=== PATIENT | male | born 2000 | race African-American/Black ===

== ENCOUNTER 2021-07-06 13:41 | Inpatient (IN) | payer MEDICAID, OTHER ==
--- NOTE | 2021-07-06 14:44 | ED ---
Psych HPI - General Chief Complaint: Psychiatric Symptoms Stated Complaint: Mental Health Time Seen by Provider: 07/06/21 14:15 Source: patient, family, RN notes reviewed Mode of arrival: ambulatory - History of Present Illness Initial Comments: 21-year-old male with a history of depression last several years who apparently is been having increased issues with depression he's had suicidal thoughts and ideation also desire to hurt people. He is brought in today because his sister brought him in for evaluation. He apparently has been using drugs which haven't been helping the situation. He most recently use marijuana. He denies any alcohol use. No other complaints no other modifying factors MD Complaint: suicidal ideation, feels depressed, other - Related Data Home Medications Medication Instructions Recorded Confirmed No Known Home Medications 05/15/14 07/06/21 Allergies Allergy/AdvReac Type Severity Reaction Status Date / Time No Known Allergies Allergy Verified 07/06/21 14:29 Review of Systems ROS Statement: Those systems with pertinent positive or pertinent negative responses have been documented in the HPI. ROS Other: All systems not noted in ROS Statement are negative. Past Medical History Past Medical History: No Reported History History of Any Multi-Drug Resistant Organisms: None Reported Past Surgical History: No Surgical Hx Reported Past Psychological History: No Psychological Hx Reported Smoking Status: Current some day smoker Past Alcohol Use History: None Reported Past Drug Use History: Cocaine, Marijuana, Methamphetamine General Exam - General Exam Comments Initial Comments: This is a well-developed well-nourished awake alert oriented times 3 male Limitations: no limitations General appearance: alert, in no apparent distress Head exam: Present: atraumatic, normocephalic, normal inspection Eye exam: Present: normal appearance, PERRL, EOMI. Absent: scleral icterus, conjunctival injection, periorbital swelling ENT exam: Present: normal exam, mucous membranes moist Neck exam: Present: normal inspection. Absent: tenderness, meningismus, lymphadenopathy Respiratory exam: Present: normal lung sounds bilaterally. Absent: respiratory distress, wheezes, rales, rhonchi, stridor Cardiovascular Exam: Present: regular rate, normal rhythm, normal heart sounds. Absent: systolic murmur, diastolic murmur, rubs, gallop, clicks GI/Abdominal exam: Present: soft, normal bowel sounds. Absent: distended, tenderness, guarding, rebound, rigid Extremities exam: Present: normal inspection, full ROM, normal capillary refill. Absent: tenderness, pedal edema, joint swelling, calf tenderness Back exam: Present: normal inspection, full ROM Neurological exam: Present: alert, oriented X3, CN II-XII intact Psychiatric exam: Present: depressed, flat affect, suicidal ideation Skin exam: Present: warm, dry, intact, normal color. Absent: rash Course Vital Signs 07/06/21 13:59 Temperature 98.5 F Pulse Rate 106 H Respiratory 20 Rate Blood Pressure 159/85 O2 Sat by Pulse 100 Oximetry Medical Decision Making - Medical Decision Making The patient was evaluated by the psychiatric service and will be admitted for inpatient evaluation and treatment - Lab Data Lab Results 07/06/21 Range/Units 14:22 Urine Opiates Screen Not Detected (NotDetected) Ur Oxycodone Screen Not Detected (NotDetected) Urine Methadone Screen Not Detected (NotDetected) Ur Propoxyphene Screen Not Detected (NotDetected) Ur Barbiturates Screen Not Detected (NotDetected) U Tricyclic Antidepress Not Detected (NotDetected) Ur Phencyclidine Scrn Not Detected (NotDetected) Ur Amphetamines Screen Not Detected (NotDetected) U Methamphetamines Scrn Not Detected (NotDetected) U Benzodiazepines Scrn Not Detected (NotDetected) Urine Cocaine Screen Not Detected (NotDetected) U Marijuana (THC) Screen Detected H (NotDetected) Disposition Clinical Impression: Depression, Suicidal ideation Disposition: TRANSFER TO PSYCH HOSP/UNIT Condition: Stable Referrals: Augustin Murphy MD [Primary Care Provider] - 1-2 days
[2021-07-06 15:00] LABS: Amphetamine Screen,Urine Not Detected (NotDetected); Barbiturate Screen,Urine Not Detected (NotDetected); Benzodiazepines Screen,Urine Not Detected (NotDetected); Cocaine Screen,Urine Not Detected (NotDetected); Methadone Screen, Urine Not Detected (NotDetected); Opiate Screen,Urine Not Detected (NotDetected); Oxycodone Screen, Urine Not Detected (NotDetected); Phencyclidine Screen,Urine Not Detected (NotDetected); Tricyclic Antidepressant,Urine Not Detected (NotDetected); Urn Cannabinoid Scrn Detected (NotDetected)
[2021-07-06] MEDS ORDERED: HALOPERIDOL LACTATE 5 MG/ML 1 ML VIAL IM PRN (18:46)
[2021-07-06] MEDS ORDERED: MAGNESIUM HYDROXIDE 2,400 MG/10 ML CUP PO PRN (18:46)
[2021-07-06] MEDS ORDERED: ACETAMINOPHEN TAB 325 MG TAB PO PRN (18:46)
[2021-07-06] MEDS ORDERED: MAG HYDROX/AL HYDROX/SIMETH 30 ML CUP PO PRN (18:46)
[2021-07-06] MEDS ORDERED: LORazepam 1 MG TAB PO PRN (18:46)
[2021-07-06] MEDS ORDERED: LORazepam 2 MG/ML INJ IM PRN (18:53)
[2021-07-06] MEDS ORDERED: haloperidoL 5 MG TAB PO PRN (18:54)
[2021-07-06] MEDS ORDERED: traZODone HCL 50 MG TAB PO PRN (18:55)
[2021-07-06 21:30] LABS: Appearance,Urine Cloudy (Clear); Bacteria,Urine Moderate /hpf; Bilirubin,Urine Negative (Negative); Blood,Urine Negative (Negative); Color,Urine Yellow; Glucose,Urine (UA) Negative (Negative); Ketones,Urine Negative (Negative); Leukocyte Esterase,Urine Negative (Negative); Mucus,Urine Rare /hpf; Nitrite,Urine Negative (Negative); Protein,Urine Negative (Negative); RBC,Urine 8 /hpf (0-5); Specific Gravity,Urine 1.026 (1.001-1.035); Urobilinogen,Urine <2.0 mg/dL (<2.0); WBC,Urine 1 /hpf (0-5)
[2021-07-06] MEDS: NICOTINE 14MG/24HR PATCH TRANSDERM SCH (22:06)
[2021-07-07] MEDS: NICOTINE 14MG/24HR PATCH TRANSDERM SCH (10:03)
[2021-07-07] MEDS ORDERED: ARIPiprazole 5 MG TAB PO STA (11:07)
[2021-07-07] MEDS ORDERED: FLUoxetine HCL 10 MG CAP PO STA (11:08)
--- NOTE | 2021-07-07 11:56 | P.HP ---
Psychiatric H&P - . H&P Date: 07/07/21 History & Physical: Allergies Allergy/AdvReac Type Severity Reaction Status Date / Time No Known Allergies Allergy Verified 07/06/21 14:29 Vital Signs Temp 98.4 F 07/07/21 06:42 Pulse 72 07/07/21 06:42 Resp 14 07/07/21 06:42 BP 117/72 07/07/21 06:42 Pulse Ox 97 07/07/21 06:42 Intake & Output 07/06/21 07/07/21 07/07/21 18:59 06:59 18:59 Weight 83.915 kg 65.317 kg Laboratory Last Values Urine Color Yellow 07/06/21 14: Urine Appearance Cloudy (Clear) 07/06/21 14:22 Urine pH 7.0 (5.0-8.0) 07/06/21 14:22 Ur Specific E[place]ice 1.026 (1.001-1.035) 07/06/21 14:22 Urine Protein Negative (Negative) 07/06/21 14:22 Urine Glucose (UA) Negative (Negative) 07/06/21 14:22 Urine Ketones Negative (Negative) 07/06/21 14:22 Urine Blood Negative (Negative) 07/06/21 14:22 Urine Nitrite Negative (Negative) 07/06/21 14:22 Urine Bilirubin Negative (Negative) 07/06/21 14:22 Urine Urobilinogen <2.0 mg/dL (<2.0) 07/06/21 14:22 Ur Leukocyte Esterase Negative (Negative) 07/06/21 14:22 Urine RBC 8 /hpf (0-5) H 07/06/21 14:22 Urine WBC 1 /hpf (0-5) 07/06/21 14:22 Urine Bacteria Moderate /hpf (None) H 07/06/21 14:22 Urine Mucus Rare /hpf (None) H 07/06/21 14:22 Urine Opiates Screen Not Detected (NotDetected) 07/06/21 14:22 Ur Oxycodone Screen Not Detected (NotDetected) 07/06/21 14:22 Urine Methadone Screen Not Detected (NotDetected) 07/06/21 14:22 Ur Propoxyphene Screen Not Detected (NotDetected) 07/06/21 14:22 Ur Barbiturates Screen Not Detected (NotDetected) 07/06/21 14:22 U Tricyclic Antidepress Not Detected (NotDetected) 07/06/21 14:22 Ur Phencyclidine Scrn Not Detected (NotDetected) 07/06/21 14:22 Ur Amphetamines Screen Not Detected (NotDetected) 07/06/21 14:22 U Methamphetamines Scrn Not Detected (NotDetected) 07/06/21 14:22 U Benzodiazepines Scrn Not Detected (NotDetected) 07/06/21 14:22 Urine Cocaine Screen Not Detected (NotDetected) 07/06/21 14:22 U Marijuana (THC) Screen Detected (NotDetected) H 07/06/21 14:22 Coronavirus (PCR) Not Detected (Not Detectd) 07/06/21 16:27 07/07/21 11:56 IDENTIFYING DATA: Patient is a single, unemployed, 21-year-old -Q[place] male, brought in to the emergency department by his sister for suicidal ideation, homicidal ideation, and delusional thinking. HPI: Patient presented to the hospital on 07/06/2021, brought in by his sister for recent suicidal, homicidal, and paranoid thoughts. As per EPS reports, the patient reportedly had suicidal thoughts approximately weeks ago with a plan to jump in the river. Furthermore, the patient had an idea to try and obtain a firearm in order to kill his cousin out of concern that they were out to get him. When evaluated on the psychiatric unit, the patient does acknowledge that he was brought in by his sister for the above-mentioned statements. He reports that he recently has been expressing suicidal ideation and 3 weeks ago he had no idea to jump into the river. He reports that the term "baptize" himself came from his mother as his mother is Seventh-day Zoroastrian. In regards to depressive symptoms, the patient does report that he has been feeling increasingly isolative, with decreased appetite, anhedonia, hopelessness, helplessness, and does admit to suicidal ideation. Aside from his idea to jump into the river, the patient denies any other prior attempts at suicide. The patient does not endorse any significant symptoms of bipolar disorder at this time. He denies any periods of excessive energy, impulsivity, and gastric, or mood lability. He denies any increased goal-directed activity. In regards to psychotic symptoms, the patient denies any auditory or visual hallucinations. He does admit to increased paranoia and fearfulness stating that he does feel like people are always trying to act against him or hurt him. He reports that this is the reason why he wanted to obtain a firearm. He is otherwise not endorsing any of the delusional thought content. He denies any thought insertion, thought deletion, thought projection, ideas of reference, or any other delusions at this time. The patient does not endorse any significant history of abuse. He denies any physical, emotional, or sexual abuse history. In regards to substance use, the patient reports that he smokes 1 g of marijuana every 2-3 days. He does report that he had an issue with methamphetamines 2 years ago and he last used cocaine 1 year ago. He reports he smokes 1-2 cigarettes per day. He denies any heavy alcohol use. PAST PSYCHIATRIC HISTORY: Patient states that he has never been treated for any mental illness in the past. Patient denies being on any psychiatric medications. Patient denies any previous psychiatric hospitalizations. Patient denies any psychiatric outpatient follow-up. Patient denies any history of suicide attempts in the past. PMH: Past Medical History: No Reported History History of Any Multi-Drug Resistant Organisms: None Reported Past Surgical History: No Surgical Hx Reported Past Psychological History: No Psychological Hx Reported Smoking Status: Current some day smoker Past Alcohol Use History: None Reported Past Drug Use History: Cocaine, Marijuana, Methamphetamine ALLERGIES: NO KNOWN DRUG ALLERGIES CHEMICAL DEPENDENCY HISTORY: as per HPI FAMILY PSYCHIATRIC/SUBSTANCE USE HISTORY: Patient reports that he has a half- brother who is schizophrenic. SOCIAL HISTORY: Patient was born and raised in [place] and then moved to [place]. He reports an 11th grade education. 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 He denies any service or lutheran affiliation. He currently does have legal problems and is on probation since July 03 for fleeing and eluding use of a controlled substance. MENTAL STATUS EXAM: General Appearance: Patient appears to be stated age is alert, directable, and attempts to cooperate. Patient appears to have good hygiene and grooming. Behavior: Patient is seated without any agitated behavior. Eye contact is appropriate. Speech: Patient's speech is fluent and nonpressured. Monotone and nonspontaneous. Mood/Affect: Patient reports their mood is depressed, affect is congruent and blunted. Suicidality/Homicidality: Patient denies having any homicidal ideation intent or plan. Denies any suicidal ideations intent or plan Perceptions: Patient denies any visual hallucinations and denies any auditory hallucinations Though content/process: Paranoia is endorsed however no other delusional thought content is reported. Memory and concentration: AOX3, grossly intact for the purposes of this session. Can spell "WORLD" backwards Judgment and insight: Fair STRENGTHS/WEAKNESSES: Strengths is that the patient history and dinorah and appears to have a supportive family. Weakness is that the patient engages in frequent marijuana use. INTELLECT: average IMPRESSIONS: Major depressive disorder Psychosis, unspecified - suspect secondary to cannabis use Cannabis use disorder Tobacco use PLAN: -Patient is admitted under voluntary status to [facility] for stabilization of psychiatric symptoms and safety. Patient signed adult voluntary form and me dication consent and is placed in patient's chart. -Medications : Will start patient on Prozac 10 mg daily for depression/anxiety. We'll increase 20 mg tomorrow. Abilify 5 mg by mouth daily for management of mood augmentation and psychosis. We'll gradually titrate to 10 mg over the weekend. -Ativan and Haldol PRN for agitation/aggression -Patient was counselled on substance abuse and desired to cut back on use -Patient was informed of the risks, benefits and side effects of the medication and patient verbally consented to taking the medications. Patient signed med consent form and was placed in chart. -Internal Medicine consult to perform medical evaluation and physical. -NRT - nicotine patch - on board for discharge planning. Encourage patient to participate in groups to work on coping skills. 07/07/21 11:56
[2021-07-07 16:07] LABS: Basophils # (A) 0.1 k/uL (0-0.2); Basophils % (A) 1 %; Eosinophils # (A) 0.1 k/uL (0-0.7); Eosinophils % (A) 2 %; HCT 49.9 % (39.0-53.0); HGB 16.5 gm/dL (13.0-17.5); Lymphocytes # (A) 1.9 k/uL (1.0-4.8); Lymphocytes % (A) 38 %; MCH 28.2 pg (25.0-35.0); MCHC 33.1 g/dL (31.0-37.0); MCV 85.3 fL (80.0-100.0); Mean Platelet Volume 7.5; Monocytes # (A) 0.2 k/uL (0-1.0); Monocytes % (A) 5 %; Neutrophils # (A) 2.6 k/uL (1.3-7.7); Neutrophils % (A) 53 %; Platelet Count 264 k/uL (150-450); RBC 5.86 m/uL (4.30-5.90); RDW 12.3 % (11.5-15.5); WBC 4.9 k/uL (3.8-10.6)
[2021-07-07 16:14] LABS: ALT 10 U/L (4-49); AST 20 U/L (17-59); African American GFR (CKD) >90 (>60 ml/min/1.73 sqM); Alkaline Phosphatase 53 U/L (38-126); Anion Gap 12 mmol/L; Blood Urea Nitrogen 13 mg/dL (9-20); Calcium 9.9 mg/dL (8.4-10.2); Carbon Dioxide 26 mmol/L (22-30); Chloride 101 mmol/L (98-107); Glucose 96 mg/dL (74-99); Non-African American GFR(CKD) >90 (>60 ml/min/1.73 sqM); Potassium 4.2 mmol/L (3.5-5.1); Sodium 139 mmol/L (137-145); Total Bilirubin 1.4 mg/dL (0.2-1.3); Total Protein 7.8 g/dL (6.3-8.2)
--- NOTE | 2021-07-07 22:32 | CONS ---
CONSULTATION CHIEF COMPLAINT: Major depression and delusional disorder. HISTORY OF PRESENT ILLNESS: This is the first known admission for this 21-year-old -Tajik male. He has been healthy otherwise. Apparently his sister brought him to the hospital. He is not giving a clear reason as to why. He has been healthy. REVIEW OF SYSTEMS: He denies any headaches, neurologic problems, problems with vision, chest pain, shortness of breath, hypertension, heart disease, abdominal pain, nausea, vomiting, , melena, hematochezia, urinary complaints, diabetes, etc. Past medical history, family history, and personal and social histories are otherwise unremarkable and noncontributory. He takes no medications and he is NOT ALLERGIC TO ANY MEDICATIONS. He denies ever having any surgery. He does not smoke and he denies use of drugs. PHYSICAL EXAMINATION: Blood pressure is 123/69 with a pulse of 80, respirations of 12, and he is afebrile. In general he appeared to be slender and in no acute distress. Skin color is normal and skin is warm and dry. Head, ears, eyes, nose, mouth and throat were normal. Neck veins were not distended. Thyroid is not enlarged. Chest is clear. Cardiac exam is normal. The abdomen is flat, soft and nontender. Extremities and normal. Neurologically he is intact. He is admitted to the hospital with diagnoses: 1. Depression. 2. ? schizophrenia. PLAN: No medical recommendations at this time. MMODL / IJN: [id number] /
[2021-07-08] MEDS ORDERED: ARIPiprazole 5 MG TAB PO SCH (09:00)
[2021-07-08] MEDS: FLUoxetine HCL 20 MG CAP PO SCH (09:09)
[2021-07-08] MEDS: NICOTINE 14MG/24HR PATCH TRANSDERM SCH (09:09)
--- NOTE | 2021-07-08 17:18 | PN ---
PROGRESS NOTE DATE OF SERVICE: 07/08/2021. CHIEF COMPLAINT: The patient had depression with suicidal thinking, homicidal thinking and delusions. INTERVAL HISTORY: The patient has been doing fair. He had a quiet day yesterday, he was out on the unit. He will socialize some with others. He did not attend groups yesterday. He has been cooperative with care. He said he did not sleep so well last night and it is noted that he has trazodone ordered, but he did not ask for it. Today he has been up. He has not attended groups today. When I reviewed the documentation regarding his coming into the hospital. He seemed to disagree with quite a bit of a bit of the history. On the other hand, when he tried to explain things, it was hard to follow his train of thought. He was able to acknowledge that he has had some issues with depression. He was stating at one point that he did not have the impulse to jump into the river. He also stated that he had not made threats to harm others. He talked at length about his cousin owning weapons, though it was not so clear what the issues were with that. He said that he does not have much interaction with his cousins. He lives with his mother. He said the two of them are moving into a new house. He was not able to give much information as to how his sister got involved in getting him to the hospital. He reported no problems or issues with his psychotropic medications. MENTAL STATUS EXAM: The patient was restless. He gave fairly good eye contact. He responded to questions. Some of the time he would answer with fairly direct answers. At other times, his responses were disconnected from the question asked. His affect was somewhat intense. He smiled and had a friendly manner. His mood was somewhat dysphoric. It was difficult to say if he was distressed in any way. It was difficult to assess for thought disorder. He denied thoughts of harm. He was oriented and alert. ASSESSMENT: I will continue the current diagnosis and treatment plan. I will continue psychotropic medications the same including Abilify 10 mg a day and Prozac 20 mg a day. I will make his trazodone regular rather than p.r.n. as he was not aware of having a medication and does hope he could get some assistance with sleep. I briefly reviewed medication issues with the patient. It was not clear that he follow the conversation too well. We will focus on stabilization and discharge planning. CONI / ANKITAN: [id number] /
[2021-07-08] MEDS: traZODone HCL 50 MG TAB PO SCH (22:06)
[2021-07-09] MEDS: FLUoxetine HCL 20 MG CAP PO SCH (08:40)
[2021-07-09] MEDS: ARIPiprazole 10 MG TAB PO SCH (08:40)
[2021-07-09] MEDS: NICOTINE 14MG/24HR PATCH TRANSDERM SCH (08:40)
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
[2021-07-09] MEDS: traZODone HCL 50 MG TAB PO SCH (21:04)
[2021-07-10 08:29] VITALS: RESP 16
[2021-07-10] MEDS: NICOTINE 14MG/24HR PATCH TRANSDERM SCH (08:29)
[2021-07-10] MEDS: FLUoxetine HCL 20 MG CAP PO SCH (08:30)
[2021-07-10] MEDS: ARIPiprazole 10 MG TAB PO SCH (08:30)
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
[2021-07-10] MEDS: traZODone HCL 50 MG TAB PO SCH (20:44)
[2021-07-10] MEDS ORDERED: ARIPiprazole 10 MG TAB PO SCH (21:00)
[2021-07-11] MEDS: FLUoxetine HCL 10 MG CAP PO SCH (08:21)
--- NOTE | 2021-07-11 11:17 | P.PN ---
Progress Note - Text Progress Note Date: 07/11/21 Interval History: Patient was seen wandering the hallways and was directable and agreeable to speak with casualty underwriter in the office. This provider discussed with the patient the concerns of his family. The patient initially denied those concerns but as the interview continued, the patient did admit that he was violent and that he was yelling out to God because he was having "negative thoughts." When asked for his reasoning, the patient is unable to provide anything beyond a superficial answer. He reports to this provider, "everyone is always trying to get into my head." He repeats this multiple times and when asked for clarification, the patient is unable to provide any. He does endorse significant paranoia towards others. The patient does admit that he has violent outbursts. He reports that he responds with violence because others are violent towards him. He states that this is why he has physical altercations. He remained superficial and guarded in regards to expressing his physical altercations with others, in particular with his girlfriend. The patient has been adherent with his medications and is not endorsing any significant side effects at this time. He is not reporting any auditory or visual hallucinations. He denies any suicidal or homicidal ideation, intention, and/or plan. Mental Status Exam: General Appearance: Patient appears to be stated age is alert, directable, and cooperative. Behavior: Patient is calmly seated without any agitated behavior. Speech: Patient's speech is fluent and nonpressured. Monotone. Mood/Affect: Mood is improving mildly, affect is congruent and blunted. Suicidality/Homicidality: Patient denies having any suicidal or homicidal ideation intent or plan. Perceptions: Patient denies any visual hallucinations and denies any auditory hallucinations Though content/process: The patient appears to be somewhat disorganized and unable to respond with any clarity regarding his thought process. Paranoia is evident. Memory and concentration: AOX3, grossly intact for the purposes of this session Judgment and insight: Improving mildly Vital Signs Temp 97.3 F L 07/11/21 08:00 Pulse 82 07/11/21 08:00 Resp 16 07/11/21 08:00 BP 124/71 07/11/21 08:00 Pulse Ox 99 07/10/21 08:28 Assessment Schizophrenia Cannabis use disorder Rule out PTSD Plan: -Patient continues to meet criteria for inpatient psychiatric admission for symptom stabilization and safety. Patient has signed adult voluntary form and medication consent and was placed in patient's chart. -Medications: Increase Abilify to 20 mg for mood stabilization/psychosis Continue Prozac 30 mg by mouth daily for depression/anxiety/PTSD. -When necessary Ativan and Haldol for agitation/aggression. -SW on board for discharge planning. Encouraged the patient to participate in milieu.
[2021-07-11] MEDS: traZODone HCL 50 MG TAB PO SCH (20:37)
[2021-07-12] MEDS: FLUoxetine HCL 10 MG CAP PO SCH (08:32)
--- NOTE | 2021-07-12 11:54 | P.PN ---
Progress Note - Text Progress Note Date: 07/12/21 Interval History: Patient was seen wandering the hallways and was directable and agreeable to speak with advertising copywriter in the office. Patient is reporting any slurring slightly better today. He is currently not endorsing any suicidal or homicidal ideation, intention, and/or plan. He is not reporting any auditory or visual hallucinations. He does admit that it was all out of him to jump into the river to try and "baptized himself." He does admit to himself into this provider that he has been experiencing some negative and on thoughts lately. He reports that he does have issues with his anger, and particular related to his family. He is adherent with his medications and is not reporting any significant side effects. The patient has also been participating in more group activities and engaging with more staff and peers. Mental Status Exam: General Appearance: Patient appears to be stated age is alert, directable, and cooperative. Behavior: Patient is calmly seated without any agitated behavior. Speech: Patient's speech is fluent and nonpressured. Monotone. Mood/Affect: Mood is improving mildly, affect is congruent and constricted. Slightly increased range of affect today. Suicidality/Homicidality: Patient denies having any suicidal or homicidal ideation intent or plan. Perceptions: Patient denies any visual hallucinations and denies any auditory hallucinations Though content/process: The patient appears to be somewhat disorganized and unable to respond with any clarity regarding his thought process. Paranoia is evident. Memory and concentration: AOX3, grossly intact for the purposes of this session Judgment and insight: Improving mildly Vital Signs Temp 97.3 F L 07/11/21 08:00 Pulse 82 07/11/21 08:00 Resp 16 07/11/21 08:00 BP 124/71 07/11/21 08:00 Pulse Ox 99 07/10/21 08:28 Assessment Schizophrenia Cannabis use disorder Rule out PTSD Plan: -Patient continues to meet criteria for inpatient psychiatric admission for symptom stabilization and safety. Patient has signed adult voluntary form and medication consent and was placed in patient's chart. -Medications: Increase Abilify to 30 mg for mood stabilization/psychosis Continue Prozac 30 mg by mouth daily for depression/anxiety/PTSD. -When necessary Ativan and Haldol for agitation/aggression. -SW on board for discharge planning. Encouraged the patient to participate in milieu.
[2021-07-12] MEDS: traZODone HCL 50 MG TAB PO SCH (20:59)
[2021-07-12] MEDS ORDERED: ARIPiprazole 10 MG TAB PO SCH (21:00)
[2021-07-13] MEDS: FLUoxetine HCL 10 MG CAP PO SCH (08:32)
--- NOTE | 2021-07-13 11:24 | P.PN ---
Progress Note - Text Progress Note Date: 07/13/21 Interval History: Patient was seen wandering the hallways and was directable and agreeable to speak with real estate underwriter in the office. Patient reports that he is feeling okay. He is not endorsing any suicidal or homicidal ideation, intention, and/or plan. He reports that his sister came to visit him yesterday and the visit went well. Patient has been adherent with his medications and is reporting mild sedation as a side effect. He is open to decreasing his Prozac and continuing with his Abilify. He was presented with the option to switch to long-acting injectable however he declined. He reports that he is working on communicating well with his family. Mental Status Exam: General Appearance: Patient appears to be stated age is alert, directable, and cooperative. Behavior: Patient is calmly seated without any agitated behavior. Speech: Patient's speech is fluent and nonpressured. Monotone. Mood/Affect: Mood is improving mildly, affect is congruent and constricted. Suicidality/Homicidality: Patient denies having any suicidal or homicidal ideation intent or plan. Perceptions: Patient denies any visual hallucinations and denies any auditory hallucinations Though content/process: Thought process appears to be linear and logical in short conversations Memory and concentration: AOX3, grossly intact for the purposes of this session Judgment and insight: Improving mildly Vital Signs Temp 97.3 F L 07/11/21 08:00 Pulse 82 07/11/21 08:00 Resp 16 07/11/21 08:00 BP 124/71 07/11/21 08:00 Pulse Ox 99 07/10/21 08:28 Assessment Schizophrenia Cannabis use disorder Rule out PTSD Plan: -Patient continues to meet criteria for inpatient psychiatric admission for symptom stabilization and safety. Patient has signed adult voluntary form and medication consent and was placed in patient's chart. -Medications: Continue Abilify 30 mg for mood stabilization/psychosis Decrease Prozac to 20 mg by mouth daily for depression/anxiety/PTSD. -When necessary Ativan and Haldol for agitation/aggression. -SW on board for discharge planning. Encouraged the patient to participate in milieu.
[2021-07-13] MEDS ORDERED: ARIPiprazole 15 MG TAB PO SCH (21:00)
[2021-07-13] MEDS ORDERED: ARIPiprazole 10 MG TAB PO SCH (21:00)
[2021-07-13] MEDS: traZODone HCL 50 MG TAB PO SCH (21:12)
[2021-07-14] MEDS ORDERED: FLUoxetine HCL 20 MG CAP PO SCH (09:00)
--- NOTE | 2021-07-14 11:34 | P.DS ---
Providers Date of admission: 07/06/21 18:34 Expected date of discharge: 07/14/21 Attending physician: John Adam MD Consults: 07/06/21 18:46 Consult Physician Routine Consulting Provider: Augustin Murphy Consult Reason/Comments: history and physical/medical management Do you want consulting provider notified?: Yes Primary care physician: Augustin Murphy - Discharge Diagnosis(es) (1) Schizophrenia Current Visit: Yes Status: Acute Priority: High (2) PTSD (post-traumatic stress disorder) Current Visit: Yes Status: Chronic Priority: Medium (3) Cannabis abuse Current Visit: Yes Status: Chronic Priority: Medium Hospital Course: Admission HPI: Patient is a single, unemployed, 21-year-old -[place] male, brought in to the emergency department by his sister for suicidal ideation, homicidal ideation, and delusional thinking. Patient presented to the hospital on 07/06/2021, brought in by his sister for recent suicidal, homicidal, and paranoid thoughts. As per EPS reports, the patient reportedly had suicidal thoughts approximately weeks ago with a plan to jump in the river. Furthermore, the patient had an idea to try and obtain a firearm in order to kill his cousin out of concern that they were out to get him. When evaluated on the psychiatric unit, the patient does acknowledge that he was brought in by his sister for the above-mentioned statements. He reports that he recently has been expressing suicidal ideation and 3 weeks ago he had no idea to jump into the river. He reports that the term "baptize" himself came from his mother as his mother is [employer]-day [employer]. In regards to depressive symptoms, the patient does report that he has been feeling increasingly isolative, with decreased appetite, anhedonia, hopelessness, helplessness, and does admit to suicidal ideation. Aside from his idea to jump into the river, the patient denies any other prior attempts at suicide. The patient does not endorse any significant symptoms of bipolar disorder at this time. He denies any periods of excessive energy, impulsivity, and gastric, or mood lability. He denies any increased goal-directed activity. In regards to psychotic symptoms, the patient denies any auditory or visual hallucinations. He does admit to increased paranoia and fearfulness stating that he does feel like people are always trying to act against him or hurt him. He reports that this is the reason why he wanted to obtain a firearm. He is otherwise not endorsing any of the delusional thought content. He denies any thought insertion, thought deletion, thought projection, ideas of reference, or any other delusions at this time. The patient does not endorse any significant history of abuse. He denies any physical, emotional, or sexual abuse history. In regards to substance use, the patient reports that he smokes 1 g of marijuana every 2-3 days. He does report that he had an issue with methamphetamines 2 years ago and he last used cocaine 1 year ago. He reports he smokes 1-2 cigarettes per day. He denies any heavy alcohol use. Patient states that he has never been treated for any mental illness in the past. Patient denies being on any psychiatric medications. Patient denies any previous psychiatric hospitalizations. Patient denies any psychiatric outpatient follow-up. Patient denies any history of suicide attempts in the past. Hospital course: Upon admission to the unit patient was initially guarded, superficial, vague, and paranoid. Patient was however directable and agreeable to commence treatment. The patient was initially isolative to himself and minimal and conversation. Patient was compliant with the medications and denied any side effects throughout hospital course. Patient was started on Prozac and Abilify for management of depression/anxiety as well as psychosis. Patient spoke of his stressors and engaged in therapy both group and individual. Patient was also seen by medical team for history and physical exam. The patient gradually improved with the titration of Abilify and became more cooperative with this provider. Collateral information provided by the patient's family revealed a significant history of psychotic behavior which the patient later admitted to this provider. As Abilify was titrated, the patient displayed significant improvement in regards to his target symptoms and became more social with peers and staff. On the day of discharge, the patient is not reporting any suicidal or homicidal ideation, intention, and/or plan. He reports no access to firearms or other weapons. He reports no auditory or visual hallucinations. He is denying any paranoia or other delusions. The patient has been adherent with his medications and is not endorsing any significant side effects at this time. The patient was counseled on his medications and the need for regular compliance and was encouraged to follow-up with his outpatient appointments for mental health for primary care. Prior to discharge, a family meeting will be arranged by drug abuse social worker to answer any questions and ensure safety. Mental status exam: General Appearance: Patient appears to be stated age is alert, pleasant, and cooperative. Patient is in no acute distress and has fair hygiene and grooming Behavior: Patient is calmly seated without any agitated behavior. Speech: Patient's speech is fluent and nonpressured. Mood/Affect: Patient reports their mood is "much better", affect is congruent and euthymic to bright. Suicidality/Homicidality: Patient denies having any suicidal or homicidal ideation intent or plan. Perceptions: Patient denies any auditory or visual hallucinations. Though content/process: There is no evidence of any delusional thought content and thought process is linear and goal-directed. Memory and concentration: AOX3, grossly intact for the purposes of this session. Can spell "WORLD" backwards correctly. Judgment and insight: Improved with guarded prognosis Vital Signs Temp 97.3 F L 07/11/21 08:00 Pulse 82 07/11/21 08:00 Resp 16 07/11/21 08:00 BP 124/71 07/11/21 08:00 Pulse Ox 99 07/10/21 08:28 Laboratory Results WBC 4.9 k/uL (3.8-10.6) 07/07/21 15:36 RBC 5.86 m/uL (4.30-5.90) 07/07/21 15:36 Hgb 16.5 gm/dL (13.0-17.5) 07/07/21 15:36 Hct 49.9 % (39.0-53.0) 07/07/21 15:36 MCV 85.3 fL (80.0-100.0) 07/07/21 15:36 MCH 28.2 pg (25.0-35.0) 07/07/21 15:36 MCHC 33.1 g/dL (31.0-37.0) 07/07/21 15:36 RDW 12.3 % (11.5-15.5) 07/07/21 15:36 Plt Count 264 k/uL (150-450) 07/07/21 15:36 MPV 7.5 07/07/21 15:36 Neutrophils % 53 % 07/07/21 15:36 Lymphocytes % 38 % 07/07/21 15:36 Monocytes % 5 % 07/07/21 15:36 Eosinophils % 2 % 07/07/21 15:36 Basophils % 1 % 07/07/21 15:36 Neutrophils # 2.6 k/uL (1.3-7.7) 07/07/21 15:36 Lymphocytes # 1.9 k/uL (1.0-4.8) 07/07/21 15:36 Monocytes # 0.2 k/uL (0-1.0) 07/07/21 15:36 Eosinophils # 0.1 k/uL (0-0.7) 07/07/21 15:36 Basophils # 0.1 k/uL (0-0.2) 07/07/21 15:36 Sodium 139 mmol/L (137-145) 07/07/21 15:36 Potassium 4.2 mmol/L (3.5-5.1) 07/07/21 15:36 Chloride 101 mmol/L (98-107) 07/07/21 15:36 Carbon Dioxide 26 mmol/L (22-30) 07/07/21 15:36 Anion Gap 12 mmol/L 07/07/21 15:36 BUN 13 mg/dL (9-20) 07/07/21 15:36 Creatinine 1.12 mg/dL (0.66-1.25) 07/07/21 15:36 Est GFR (CKD-EPI)AfAm >90 (>60 ml/min/1.73 sqM) 07/07/21 15:36 Est GFR (CKD-EPI)NonAf >90 (>60 ml/min/1.73 sqM) 07/07/21 15:36 Glucose 96 mg/dL (74-99) 07/07/21 15:36 Calcium 9.9 mg/dL (8.4-10.2) 07/07/21 15:36 Total Bilirubin 1.4 mg/dL (0.2-1.3) H 07/07/21 15:36 AST 20 U/L (17-59) 07/07/21 15:36 ALT 10 U/L (4-49) 07/07/21 15:36 Alkaline Phosphatase 53 U/L (38-126) 07/07/21 15:36 Total Protein 7.8 g/dL (6.3-8.2) 07/07/21 15:36 Albumin 5.0 g/dL (3.5-5.0) 07/07/21 15:36 TSH 1.160 mIU/L (0.465-4.680) 07/07/21 15:36 Urine Color Yellow 07/06/21 14:22 Urine Appearance Cloudy (Clear) 07/06/21 14:22 Urine pH 7.0 (5.0-8.0) 07/06/21 14:22 Ur Specific [place] 1.026 (1.001-1.035) 07/06/21 14:22 Urine Protein Negative (Negative) 07/06/21 14:22 Urine Glucose (UA) Negative (Negative) 07/06/21 14:22 Urine Ketones Negative (Negative) 07/06/21 14: Urine Blood Negative (Negative) 07/06/21 14:22 Urine Nitrite Negative (Negative) 07/06/21 14:22 Urine Bilirubin Negative (Negative) 07/06/21 14:22 Urine Urobilinogen <2.0 mg/dL (<2.0) 07/06/21 14:22 Ur Leukocyte Esterase Negative (Negative) 07/06/21 14:22 Urine RBC 8 /hpf (0-5) H 07/06/21 14:22 Urine WBC 1 /hpf (0-5) 07/06/21 14:22 Urine Bacteria Moderate /hpf (None) H 07/06/21 14:22 Urine Mucus Rare /hpf (None) H 07/06/21 14:22 Urine Opiates Screen Not Detected (NotDetected) 07/06/21 14:22 Ur Oxycodone Screen Not Detected (NotDetected) 07/06/21 14:22 Urine Methadone Screen Not Detected (NotDetected) 07/06/21 14:22 Ur Propoxyphene Screen Not Detected (NotDetected) 07/06/21 14:22 Ur Barbiturates Screen Not Detected (NotDetected) 07/06/21 14:22 U Tricyclic Antidepress Not Detected (NotDetected) 07/06/21 14:22 Ur Phencyclidine Scrn Not Detected (NotDetected) 07/06/21 14:22 Ur Amphetamines Screen Not Detected (NotDetected) 07/06/21 14:22 U Methamphetamines Scrn Not Detected (NotDetected) 07/06/21 14:22 U Benzodiazepines Scrn Not Detected (NotDetected) 07/06/21 14:22 Urine Cocaine Screen Not Detected (NotDetected) 07/06/21 14:22 U Marijuana (THC) Screen Detected (NotDetected) H 07/06/21 14:22 Coronavirus (PCR) Not Detected (Not Detectd) 07/06/21 16:27 Impression: Schizophrenia PTSD Cannabis use disorder Plan: -Continue with discharge today as patient has improved and stabilized psychiatrically and is not currently an imminent threat to himself and/or others. Patient will remain at chronically elevated risk for harm to self and/or others due to his chronic cannabis use along with the primary diagnosis of schizophrenia -Continue medications: Abilify 30 mg by mouth at bedtime for schizophrenia Prozac 20 mg by mouth daily for depression/anxiety/PTSD -Patient was counseled on the need for medication compliance and appropriate follow-up at mental health and also primary care for medical issues. Patient verbalized understanding and agreed. -Social work to arrange for and conduct family meeting to ensure safety upon discharge and answer any questions/concerns. Social work also to arrange for patients follow up appointments with [facility] for psychiatric care along with follow up with primary care provider. -Patient counseled on abstaining from recreational drugs and marijuana and alcohol. Was informed/educated on the adverse effects on their physical and mental health. Patient verbally agreed and understood. -Patient was instructed to return to the hospital or seek immediate medical care if their psychiatric or medical symptoms do worsen or reoccur. -Psychoeducation and supportive therapy provided to patient. Risks and benefits of pharmacological treatment versus the risks and benefits of nontreatment weight and discussed. Informed consent discussion held. Common side effects of psychotropics discussed such as, but not limited to headache, GI disturbance, sexual dysfunction, movement disorders, sedation, and orthostatic hypotension. Life threatening and blackbox warnings of prescribed medications also discussed. Potential risks of operating a vehicle or heavy machinery discussed with patient at length. Advised on importance of compliance and a reliable and responsible manner. Patient advised to review FDA consumer labeling of all medications prior to taking. Patient verbalized understanding of potential risks, and agrees with current treatment plan. Patient advised to medically contact physician/emergency personnel if any acute changes in condition occur. Allergies Allergy/AdvReac Type Severity Reaction Status Date / Time No Known Allergies Allergy Verified 07/06/21 14:29 Patient Condition at Discharge: Stable Plan - Discharge Summary Discharge Rx Participant: No New Discharge Prescriptions: New ARIPiprazole [Abilify] 30 mg PO HS 30 Days tab FLUoxetine HCL [PROzac] 20 mg PO DAILY 30 Days cap traZODone HCL [Desyrel] 50 mg PO HS 30 Days tab Discharge Medication List ARIPiprazole [Abilify] 30 mg PO HS 30 Days tab 07/14/21 [Rx] FLUoxetine HCL [PROzac] 20 mg PO DAILY 30 Days cap 07/14/21 [Rx] traZODone HCL [Desyrel] 50 mg PO HS 30 Days tab 07/14/21 [Rx] Follow up Appointment(s)/Referral(s): [facility] [Outside] - 07/17/21 3:00 pm (with [facility] ) Augustin Murphy MD [Primary Care Provider] - 1-2 days Patient Instructions/Handouts: Depression (DC), Brief Psychotic Disorder (DC) Activity/Diet/Wound Care/Special Instructions: Activity and diet as tolerated. Avoid the use of street drugs and alcohol. Take all medications as prescribed. When you are in need of refills on your medications please contact your medical provider and/or outpatient psychiatrist to have this done. Please go to scheduled outpatient appointment for aftercare treatment. If symptoms return or become worse, call the crisis line at and/or go to the nearest emergency room for evaluation Discharge Disposition: HOME SELF-CARE
[2021-07-14 12:14] VITALS: BP 121/68; PULSE 80; TEMP 97.7
== END 2021-07-14 13:22 | disposition home or self-care (01) | DRG 880 ==
LOC: EC 13:41 → 3MHU 18:34
PROVIDERS: ADMIT Psychiatry & Neurology Psychiatry; ATTEND Psychiatry & Neurology Psychiatry
DX: F99 Mental disorder, not otherwise specified (principal); R45.851 Suicidal ideations; F20.9 Schizophrenia, unspecified; F32.9 Major depressive disorder, single episode, unspecified; F43.10 Post-traumatic stress disorder, unspecified; F17.210 Nicotine dependence, cigarettes, uncomplicated; R45.850 Homicidal ideations; F12.10 Cannabis abuse, uncomplicated; Z65.3 Problems related to other legal circumstances; Z79.899 Other long term (current) drug therapy; Z71.89 Other specified counseling; Z91.83 Wandering in diseases classified elsewhere; Z56.0 Unemployment, unspecified; Z20.822 Contact with and (suspected) exposure to COVID-19
CPT/HCPCS: 80053; 80306; 81001; 82075; 84443; 85025; 87635; 99285

== ENCOUNTER 2021-07-19 13:32 | Emergency (ER) | payer MEDICAID, OTHER ==
[2021-07-19 15:26] LABS: Amorphous Sediment,Urine Moderate /hpf; Appearance,Urine Turbid (Clear); Bilirubin,Urine Negative (Negative); Blood,Urine Moderate (Negative); Color,Urine Yellow; Glucose,Urine (UA) Negative (Negative); Ketones,Urine Negative (Negative); Leukocyte Esterase,Urine Negative (Negative); Mucus,Urine Rare /hpf; Nitrite,Urine Negative (Negative); Protein,Urine Trace (Negative); RBC,Urine 47 /hpf (0-5); Specific Gravity,Urine 1.025 (1.001-1.035)
--- NOTE | 2021-07-19 15:59 | ED ---
General Adult HPI - General Chief complaint: Abdominal Pain Stated complaint: unable to urinate Time Seen by Provider: 07/19/21 14:14 Source: patient, family Mode of arrival: ambulatory Limitations: no limitations - History of Present Illness Initial comments: 21-year-old male presents to the emergency room for a chief complaint of difficulty urinating. Patient states for the past week or so he has had urinary frequency with smaller amounts of urination. Patient has had some dysuria. He denies abdominal or flank pain. Patient is sexually active. States only one partner and does not have concerns for STDs at this time.Patient has no other complaints at this time including shortness of breath, chest pain, abdominal pain, nausea or vomiting, headache, or visual changes. - Related Data Previous Rx's Medication Instructions Recorded ARIPiprazole [Abilify] 30 mg PO HS 30 Days tab 07/14/21 FLUoxetine HCL [PROzac] 20 mg PO DAILY 30 Days cap 07/14/21 traZODone HCL [Desyrel] 50 mg PO HS 30 Days tab 07/14/21 Doxycycline [Vibramycin] 100 mg PO BID 7 Days #14 capsule 07/19/21 Allergies Allergy/AdvReac Type Severity Reaction Status Date / Time No Known Allergies Allergy Verified 07/19/21 15:38 Review of Systems ROS Statement: Those systems with pertinent positive or pertinent negative responses have been documented in the HPI. ROS Other: All systems not noted in ROS Statement are negative. Past Medical History Past Medical History: No Reported History History of Any Multi-Drug Resistant Organisms: None Reported Past Surgical History: No Surgical Hx Reported Past Psychological History: No Psychological Hx Reported Smoking Status: Current some day smoker General Exam Limitations: no limitations General appearance: alert, in no apparent distress Head exam: Present: atraumatic Eye exam: Present: normal appearance, PERRL, EOMI. Absent: scleral icterus, conjunctival injection ENT exam: Present: normal exam, mucous membranes moist Neck exam: Present: normal inspection, full ROM. Absent: tenderness Respiratory exam: Present: normal lung sounds bilaterally. Absent: respiratory distress, wheezes Cardiovascular Exam: Present: regular rate, normal rhythm, normal heart sounds GI/Abdominal exam: Present: soft, normal bowel sounds. Absent: distended, tenderness, guarding, rebound, rigid exam: Present: other (Refused) Course Vital Signs 07/19/21 13:33 Temperature 97.0 F L Pulse Rate 73 Respiratory 18 Rate Blood Pressure 134/82 O2 Sat by Pulse 100 Oximetry Medical Decision Making - Medical Decision Making Vitals are stable. Patient is well-appearing. Abdominal exam is benign. Patient does have red blood cells in his urine. We will culture this and passed patient for gonorrhea chlamydia and Trichomonas. I did recommend empirically treating for STDs however patient is refusing IM Rocephin. Does agree to doxycycline. Patient will follow-up with his doctor to ensure that hematuria resolves. He will return here for any worsening symptoms. - Lab Data Lab Results 07/19/21 Range/Units 14:48 Urine Color Yellow Urine Appearance Turbid (Clear) Urine pH 8.0 (5.0-8.0) Ur Specific [place] 1.025 (1.001-1.035) Urine Protein Trace H (Negative) Urine Glucose (UA) Negative (Negative) Urine Ketones Negative (Negative) Urine Blood Moderate H (Negative) Urine Nitrite Negative (Negative) Urine Bilirubin Negative (Negative) Urine Urobilinogen 2.0 (<2.0) mg/dL Ur Leukocyte Esterase Negative (Negative) Urine RBC 47 H (0-5) /hpf Amorphous Sediment Moderate H (None) /hpf Urine Mucus Rare H (None) /hpf Disposition Clinical Impression: Hematuria Disposition: HOME SELF-CARE Condition: Good Instructions (If sedation given, give patient instructions): Hematuria (ED) Additional Instructions: Please take antibiotic as directed. Follow-up with your doctor to ensure that blood in the urine and is resolving. Return to the emergency room for any worsening symptoms. Prescriptions: Doxycycline [Vibramycin] 100 mg PO BID 7 Days #14 capsule Is patient prescribed a controlled substance at d/c from ED?: No Referrals: Augustin Murphy MD [Primary Care Provider] - 1-2 days Time of Disposition: 16:03
[2021-07-19] MEDS ORDERED: DOXYCYCLINE 100 MG CAP PO STA (16:04)
[2021-07-19 16:48] VITALS: BP 147/98; PULSE 65; RESP 20; TEMP 98.6
[2021-07-20 14:06] LABS: C. trachomatis,PCR Negative (Neg,Equiv); Chlamydia trachomatis Source Urine; N. gonorrhoeae,PCR Negative (Neg,Equiv); Neisseria Source Urine
== END 2021-07-19 16:47 | disposition home or self-care (01) ==
LOC: EC 13:32
DX: R31.9 Hematuria, unspecified (principal); F17.200 Nicotine dependence, unspecified, uncomplicated; Z79.899 Other long term (current) drug therapy
CPT/HCPCS: 81001; 87086; 87491; 87591; 87661; 99283

== ENCOUNTER 2023-01-02 17:48 | Emergency (ER) | payer OTHER ==
[2023-01-02 18:14] VITALS: TEMP 98.5
[2023-01-02] MEDS ORDERED: SODIUM CHLORIDE 0.9% 1,000 ML IV STA (20:00)
--- NOTE | 2023-01-02 20:00 | ED ---
Overdose HPI - General Chief Complaint: Overdose Stated Complaint: med overdose Time Seen by Provider: 01/02/23 19:50 Source: patient Mode of arrival: ambulatory Limitations: no limitations - History of Present Illness Initial Comments: Patient is a 22-year-old -[place] male presenting to the emergency room with his mother for further evaluation after intentionally taking more than his prescribed dose of trazodone. He is prescribed 50 mg tablets of trazodone and reports that he took the remaining number of tablets in his bottle due to severe insomnia approximately 3 hours prior to his arrival to the emergency room. He is unsure the exact number of tablets that he took but believes there was less than 10 but greater than 6 remaining in the bottle. He reports no intention of self- harm with the medication intentional overdose but did intentionally take too many medications. He reports increased depression and insomnia since being r eleased from in October. He has followed up with [facility] in the past and has plans to reestablish with them but has not to this point. He denies any suicidal ideation, homicidal ideation, hallucinations or delusions. He has no other significant past medical history. - Related Data Previous Rx's Medication Instructions Recorded ARIPiprazole [Abilify] 30 mg PO HS 30 Days tab 07/14/21 FLUoxetine HCL [PROzac] 20 mg PO DAILY 30 Days cap 07/14/21 traZODone HCL [Desyrel] 50 mg PO HS 30 Days tab 07/14/21 Doxycycline [Vibramycin] 100 mg PO BID 7 Days #14 capsule 07/19/21 Allergies Allergy/AdvReac Type Severity Reaction Status Date / Time No Known Allergies Allergy Verified 01/02/23 18:14 Review of Systems ROS Statement: Those systems with pertinent positive or pertinent negative responses have been documented in the HPI. ROS Other: All systems not noted in ROS Statement are negative. Past Medical History Past Medical History: No Reported History History of Any Multi-Drug Resistant Organisms: None Reported Past Surgical History: No Surgical Hx Reported Past Psychological History: No Psychological Hx Reported Smoking Status: Current some day smoker Past Alcohol Use History: None Reported Past Drug Use History: None Reported General Exam Limitations: no limitations General appearance: alert, in no apparent distress Head exam: Present: atraumatic, normocephalic, normal inspection Eye exam: Present: normal appearance, PERRL, EOMI. Absent: scleral icterus, conjunctival injection, periorbital swelling ENT exam: Present: normal exam, mucous membranes moist Neck exam: Present: normal inspection. Absent: tenderness, lymphadenopathy Respiratory exam: Present: normal lung sounds bilaterally. Absent: respiratory distress, wheezes, rales, rhonchi, stridor Cardiovascular Exam: Present: regular rate, normal rhythm, normal heart sounds. Absent: systolic murmur, diastolic murmur, rubs, gallop, clicks GI/Abdominal exam: Present: soft, normal bowel sounds. Absent: distended, tenderness, guarding, rebound, rigid Extremities exam: Present: normal inspection, full ROM. Absent: tenderness, pedal edema, joint swelling Back exam: Present: normal inspection, full ROM Neurological exam: Present: alert, oriented X3, CN II-XII intact Psychiatric exam: Present: depressed, flat affect. Absent: homicidal ideation, suicidal ideation Skin exam: Present: warm, dry, intact, normal color. Absent: rash Course Vital Signs 01/02/23 01/02/23 01/02/23 18:12 20:14 22:37 Temperature 98.5 F Pulse Rate 113 H 70 75 Respiratory 20 18 Rate Blood Pressure 138/91 127/67 O2 Sat by Pulse 96 98 96 Oximetry Procedures - Incision & Drainage Consent Obtained: verbal consent Site: upper extremity (left elbow) I&D Cleaning Method: Chloroprep Scalpel Used: #11 I&D Drainage Obtained: Pus, Blood Culture Obtained?: Yes Patient Tolerated Procedure: well, no complications Medical Decision Making - Medical Decision Making Was pt. sent in by a medical professional or institution (, PA, AIR CHIPPER, urgent care, hospital, or correction...) When possible be specific @ -No Did you speak to anyone other than the patient for history (EMS, parent, family, police, friend...)? What history was obtained from this source @ -No Did you review nursing and triage notes (agree or disagree)? Why? @ -I reviewed and agree with nursing and triage notes except patient intentional too over recommended dose with intent to sleep without self harm plan. Were old charts reviewed (outside hosp., previous admission, EMS record, old EKG, old radiological studies, urgent care reports/EKG's, correction records)? Report findings @ -No Differential Diagnosis (chest pain, altered mental status, abdominal pain women, abdominal pain men, vaginal bleeding, weakness, fever, dyspnea, syncope, headache, dizziness, GI bleed, back pain, seizure, CVA, palpatations, mental health, musculoskeletal)? @ -Differential Mental Health Depression, anxiety, bipolar, psychosis, schizophrenia, borderline personality, situational depression, adjustment disorder, behavioral disorder, brain tumor, malingering, substance abuse, encephalopathy, medication reaction, dementia, hypothyroidism, degenerative neurologic disorder, lupus.... This is not meant to be all-inclusive list EKG interpreted by me (3pts min.). @ -None done X-rays interpreted by me (1pt min.). @ -None done CT interpreted by me (1pt min.). @ -None done U/S interpreted by me (1pt. min.). @ -None done What testing was considered but not performed or refused? (CT, X-rays, U/S, labs)? Why? @ -None What meds were considered but not given or refused? Why? @ -None Did you discuss the management of the patient with other professionals (professionals i.e. , PA, AIR CHIPPER, lab, RT, psych nurse, social media strategist, heating and air conditioning mechanic, teacher, ordnance officer, casework manager)? Give summary @ -Yes, discussed his case with EPS nurse who completed evaluation due to intentional overdose of medication. She cleared patient for discharge with safety plan in place. Was smoking cessation discussed for >3mins.? @ -No Was critical care preformed (if so, how long)? @ -No Were there social determinants of health that impacted care today? How? (Homelessness, low income, unemployed, alcoholism, drug addiction, transportation, low edu. Level, literacy, decrease access to med. care, longterm, rehab)? @ -Yes, recent incarceration with decrease access to his psychiatric services Was there de-escalation of care discussed even if they declined (Discuss DNR or withdrawal of care, Hospice)? DNR status @ -No What co-morbidities impacted this encounter? (DM, HTN, Smoking, COPD, CAD, Cancer, CVA, ARF, Chemo, Hep., AIDS, mental health diagnosis, sleep apnea, morbid obesity)? @ -Depression with insomnia Was patient admitted / discharged? Hospital course, mention meds given and route, prescriptions, significant lab abnormalities, going to OR and other pertinent info. @ -22-year-old Brandi male presenting to the emergency room after intentional overdose of trazodone and attempts to sleep. No intent of self-harm without any suicidal ideation, homicidal ideation, delusions or hallucinations. Due to exact number of tablets taken unknown will obtain CBC and CMP to evaluate for hematological, renal and hepatic abnormalities. No indication for reversal agent. Will give 1 L normal saline and monitor. CBC without abnormalities. CMP with glucose elevated at 101 otherwise no abnormalities. Tolerated IV hydration well. Breath alcohol testing completed 0.00. Patient medically cleared for evaluation by mental health services due to intentional aspect of medication overdosing despite lack of self-harm intention. Evaluation by EPS nurse completed. No indication for inpatient hospitalization for mental health services. Patient given safety plan and resources for community mental health and and other services by EPS nurse. Patient encouraged to follow-up with psychiatric services. Advised patient not to take medications that are not prescribed to him day and to take medications as prescribed. No indication for further diagnostic testing, laboratory studies were medication administration at this time. Questions and concerns answered. Return parameters to the emergency room discussed. Will discharge home in stable condition after intentional overdose of trazodone advising further outpatient follow-up and management of insomnia and depression. Undiagnosed new problem with uncertain prognosis? @ -No Drug Therapy requiring intensive monitoring for toxicity (Heparin, Nitro, Insuli n, Cardizem)? @ -No Were any procedures done? @ -No Diagnosis/symptom? @ -Intentional drug overdose of trazodone Acute, or Chronic, or Acute on Chronic? @ -Acute Uncomplicated (without systemic symptoms) or Complicated (systemic symptoms)? @ -Uncomplicated Side effects of treatment? @ -No Exacerbation, Progression, or Severe Exacerbation? @ -No Poses a threat to life or bodily function? How? (Chest pain, [place], [place], pneumonia, PE, COPD, DKA, ARF, appy, cholecystitis, CVA, Diverticulitis, Homicidal, Suicidal, threat to staff... and all critical care pts) @ -No Diagnosis/symptom? @ -Insomnia Acute, or Chronic, or Acute on Chronic? @ -Chronic Uncomplicated (without systemic symptoms) or Complicated (systemic symptoms)? @ -Uncomplicated Side effects of treatment? @ -No Exacerbation, Progression, or Severe Exacerbation? @ -No Poses a threat to life or bodily function? How? (Chest pain, [place], [place], pneumonia, PE, COPD, DKA, ARF, appy, cholecystitis, CVA, Diverticulitis, Homicidal, Suicidal, threat to staff... and all critical care pts) @ -No Diagnosis/symptom? @ -Depression Acute, or Chronic, or Acute on Chronic? @ -Chronic Uncomplicated (without systemic symptoms) or Complicated (systemic symptoms)? @ -Uncomplicated Side effects of treatment? @ -No Exacerbation, Progression, or Severe Exacerbation? @ -No Poses a threat to life or bodily function? How? (Chest pain, [place], [place], pneumonia, PE, COPD, DKA, ARF, appy, cholecystitis, CVA, Diverticulitis, Homicidal, Suicida l, threat to staff... and all critical care pts) @ -No Case discussed with Dr. Horan. - Lab Data Result diagrams: 01/02/23 20:04 01/02/23 20:04 Lab Results 01/02/23 01/02/23 Range/Units 20:04 20:04 WBC 5.8 (3.8-10.6) k/uL RBC 5.68 (4.30-5.90) m/uL Hgb 15.9 (13.0-17.5) gm/dL Hct 46.7 (39.0-53.0) % MCV 82.2 (80.0-100.0) fL MCH 28.0 (25.0-35.0) pg MCHC 34.1 (31.0-37.0) g/dL RDW 12.1 (11.5-15.5) % Plt Count 252 (150-450) k/uL MPV 7.5 Neutrophils % 64 % Lymphocytes % 29 % Monocytes % 4 % Eosinophils % 1 % Basophils % 0 % Neutrophils # 3.7 (1.3-7.7) k/uL Lymphocytes # 1.7 (1.0-4.8) k/uL Monocytes # 0.2 (0-1.0) k/uL Eosinophils # 0.1 (0-0.7) k/uL Basophils # 0.0 (0-0.2) k/uL Sodium 137 (137-145) mmol/L Potassium 3.8 (3.5-5.1) mmol/L Chloride 103 (98-107) mmol/L Carbon Dioxide 25 (22-30) mmol/L Anion Gap 9 mmol/L BUN 13 (9-20) mg/dL Creatinine 1.07 (0.66-1.25) mg/dL Est GFR (CKD-EPI)AfAm >90 (>60 ml/min/1.73 sqM) Est GFR (CKD-EPI)NonAf >90 (>60 ml/min/1.73 sqM) Glucose 101 H (74-99) mg/dL Calcium 9.4 (8.4-10.2) mg/dL Total Bilirubin 0.8 (0.2-1.3) mg/dL AST 21 (17-59) U/L ALT 14 (4-49) U/L Alkaline Phosphatase 57 (38-126) U/L Total Protein 7.6 (6.3-8.2) g/dL Albumin 4.7 (3.5-5.0) g/dL Disposition Clinical Impression: Drug overdose, Insomnia, Depression Disposition: HOME SELF-CARE Condition: Stable Instructions (If sedation given, give patient instructions): Depression (ED), Insomnia (ED), Adult Overdose (ED) Additional Instructions: Please contact psychiatric services per safety plan that was provided to you by the psychiatric nurse. Please take medications that you are prescribed as prescribed. Please return to the Emergency Department if symptoms worsen or any other concerns. Is patient prescribed a controlled substance at d/c from ED?: No Referrals: Augustin Murphy MD [Primary Care Provider] - 1-2 days Time of Disposition: 22:08
[2023-01-02 20:47] LABS: ALT 14 U/L (4-49); AST 21 U/L (17-59); African American GFR (CKD) >90 (>60 ml/min/1.73 sqM); Albumin 4.7 g/dL (3.5-5.0); Alkaline Phosphatase 57 U/L (38-126); Anion Gap 9 mmol/L; Blood Urea Nitrogen 13 mg/dL (9-20); Calcium 9.4 mg/dL (8.4-10.2); Carbon Dioxide 25 mmol/L (22-30); Chloride 103 mmol/L (98-107); Glucose 101 mg/dL (74-99); Non-African American GFR(CKD) >90 (>60 ml/min/1.73 sqM); Potassium 3.8 mmol/L (3.5-5.1); Sodium 137 mmol/L (137-145); Total Bilirubin 0.8 mg/dL (0.2-1.3); Total Protein 7.6 g/dL (6.3-8.2)
[2023-01-02 20:48] LABS: Basophils % (A) 0 %; Eosinophils # (A) 0.1 k/uL (0-0.7); Eosinophils % (A) 1 %; HCT 46.7 % (39.0-53.0); HGB 15.9 gm/dL (13.0-17.5); Lymphocytes # (A) 1.7 k/uL (1.0-4.8); Lymphocytes % (A) 29 %; MCHC 34.1 g/dL (31.0-37.0); MCV 82.2 fL (80.0-100.0); Mean Platelet Volume 7.5; Monocytes # (A) 0.2 k/uL (0-1.0); Monocytes % (A) 4 %; Neutrophils # (A) 3.7 k/uL (1.3-7.7); Neutrophils % (A) 64 %; Platelet Count 252 k/uL (150-450); RBC 5.68 m/uL (4.30-5.90); RDW 12.1 % (11.5-15.5); WBC 5.8 k/uL (3.8-10.6)
[2023-01-02 22:38] VITALS: BP 127/67; PULSE 75; RESP 18
== END 2023-01-02 22:42 | disposition home or self-care (01) ==
LOC: EC 17:48
DX: T43.211A Poisoning by selective serotonin and norepinephrine reuptake inhibitors, accidental (unintentional), initial encounter (principal); G47.00 Insomnia, unspecified; F32.A Depression, unspecified; F17.200 Nicotine dependence, unspecified, uncomplicated
CPT/HCPCS: 10060; 36415; 80053; 85025; 96360; 99284

== ENCOUNTER 2023-06-03 13:38 | Emergency (ER) | payer OTHER ==
--- NOTE | 2023-06-03 13:55 | ED ---
General Adult HPI - General Stated complaint: abd pain Time Seen by Provider: 06/03/23 13:46 Source: patient, RN notes reviewed - History of Present Illness Initial comments: 23 year old male presents to the emergency department for chief complaint of "tightness" in his left testicle. He states that this started around 10am this morning. He reports that since then this has improved. Denies fever, discharge, redness, swelling to the testicle. Denies STDs. - Related Data Home Medications Medication Instructions Recorded Confirmed No Known Home Medications 06/03/23 06/03/23 Allergies Allergy/AdvReac Type Severity Reaction Status Date / Time No Known Allergies Allergy Verified 06/03/23 16:43 Review of Systems ROS Statement: Those systems with pertinent positive or pertinent negative responses have been documented in the HPI. ROS Other: All systems not noted in ROS Statement are negative. Past Medical History Past Medical History: No Reported History History of Any Multi-Drug Resistant Organisms: None Reported Past Surgical History: No Surgical Hx Reported Past Psychological History: No Psychological Hx Reported Smoking Status: Current some day smoker Past Alcohol Use History: None Reported Past Drug Use History: None Reported General Exam - General Exam Comments Initial Comments: Visual Physical Exam Vital signs reviewed General: Well-appearing, nontoxic, no acute distress. Head: Normocephalic, atraumatic Eyes: PERRLA, EOMI ENT: Airway patent Chest: Nonlabored breathing Skin: No visual rash, normal skin tone Neuro: Alert and oriented 3 Musculoskeletal: No gross abnormalities Limitations: no limitations General appearance: alert, in no apparent distress Head exam: Present: atraumatic, normocephalic, normal inspection Eye exam: Present: normal appearance, PERRL, EOMI. Absent: scleral icterus, conjunctival injection, periorbital swelling ENT exam: Present: normal exam, mucous membranes moist Neck exam: Present: normal inspection. Absent: tenderness, meningismus, lymphadenopathy Respiratory exam: Present: normal lung sounds bilaterally. Absent: respiratory distress, wheezes, rales, rhonchi, stridor Cardiovascular Exam: Present: regular rate, normal rhythm, normal heart sounds. Absent: systolic murmur, diastolic murmur, rubs, gallop, clicks GI/Abdominal exam: Present: soft, normal bowel sounds. Absent: distended, tenderness, guarding, rebound, rigid exam: Present: normal inspection. Absent: testicular tenderness, urethral discharge, scrotal swelling, vertical testicular lie Extremities exam: Present: normal inspection, full ROM, normal capillary refill. Absent: tenderness, pedal edema, joint swelling, calf tenderness Back exam: Present: normal inspection Neurological exam: Present: alert, oriented X3 Psychiatric exam: Present: normal affect, normal mood Skin exam: Present: warm, dry, intact, normal color. Absent: rash Course Vital Signs 06/03/23 06/03/23 13:45 16:44 Temperature 97.9 F 97.8 F Pulse Rate 91 78 Respiratory 16 18 Rate Blood Pressure 141/91 124/83 O2 Sat by Pulse 99 97 Oximetry Medical Decision Making - Medical Decision Making Quick note performed by Gabriella Tsai PA-C Was pt. sent in by a medical professional or institution (PUJA James, PUBLIC TRANSIT SPECIALIST, urgent care, hospital, or long-term...) When possible be specific @ -No Did you speak to anyone other than the patient for history (EMS, parent, family, police, friend...)? What history was obtained from this source @ -No Did you review nursing and triage notes (agree or disagree)? Why? @ -I reviewed and agree with nursing and triage notes Were old charts reviewed (outside hosp., previous admission, EMS record, old EKG, old radiological studies, urgent care reports/EKG's, long-term records)? Report findings @ -No old charts were reviewed Differential Diagnosis (chest pain, altered mental status, abdominal pain women, abdominal pain men, vaginal bleeding, weakness, fever, dyspnea, syncope, headache, dizziness, GI bleed, back pain, seizure, CVA, palpatations, mental health, musculoskeletal)? @ -Testicular torsion, epididymitis, orchitis, this list is not all-inclusive EKG interpreted by me (3pts min.). @ -none X-rays interpreted by me (1pt min.). @ -None done CT interpreted by me (1pt min.). @ -None done U/S interpreted by me (1pt. min.). @ -None done What testing was considered but not performed or refused? (CT, X-rays, U/S, labs)? Why? @ -None What meds were considered but not given or refused? Why? @ -None Did you discuss the management of the patient with other professionals (professionals i.e. , PA, PUBLIC TRANSIT SPECIALIST, lab, RT, psych nurse, social human services assistants, instant potato processing supervisor, teacher, legal officer, hospice case manager)? Give summary @ -No Was smoking cessation discussed for >3mins.? @ -No Was critical care preformed (if so, how long)? @ -No Were there social determinants of health that impacted care today? How? (Homelessness, low income, unemployed, alcoholism, drug addiction, transportation, low edu. Level, literacy, decrease access to med. care, long-term, rehab)? @ -No Was there de-escalation of care discussed even if they declined (Discuss DNR or withdrawal of care, Hospice)? DNR status @ -No What co-morbidities impacted this encounter? (DM, HTN, Smoking, COPD, CAD, Cancer, CVA, ARF, Chemo, Hep., AIDS, mental health diagnosis, sleep apnea, morbid obesity)? @ -None Was patient admitted / discharged? Hospital course, mention meds given and route, prescriptions, significant lab abnormalities, going to OR and other p ertinent info. @ -Discharged. Patient presented to the emergency department for chief complaint of left testicle fullness 1 day. He states that this has since improved. Denies fever, chills, penile discharge, STDs.UA shows moderate blood, negative nitrate, negative leukocyte esterase. Scrotal ultrasound shows no evidence of testicular torsion, small right and trace left hydroceles; early varicoceles on the left. Gonorrhea and chlamydia testing sent will call patient if they are positive. Advised patient to follow-up with urology. Patient understands agreeable with plan. Patient stable at discharge. Case discussed with Dr. Kerns. Undiagnosed new problem with uncertain prognosis? @ -No Drug Therapy requiring intensive monitoring for toxicity (Heparin, Nitro, Insulin, Cardizem)? @ -No Were any procedures done? @ -No Diagnosis/symptom? @ -varicocele Acute, or Chronic, or Acute on Chronic? @ -acute Uncomplicated (without systemic symptoms) or Complicated (systemic symptoms)? @ -uncomplicated Side effects of treatment? @ -No Exacerbation, Progression, or Severe Exacerbation? @ -No Poses a threat to life or bodily function? How? (Chest pain, [place], [place], pneumonia, PE, COPD, DKA, ARF, appy, cholecystitis, CVA, Diverticulitis, Homicidal, S uicidal, threat to staff... and all critical care pts) @ -No - Lab Data Lab Results 06/03/23 Range/Units 15:48 Urine Color Yellow Urine Appearance Clear (Clear) Urine pH 6.5 (5.0-8.0) Ur Specific [place] 1.015 (1.001-1.035) Urine Protein Negative (Negative) Urine Glucose (UA) Negative (Negative) Urine Ketones Negative (Negative) Urine Blood Moderate H (Negative) Urine Nitrite Negative (Negative) Urine Bilirubin Negative (Negative) Urine Urobilinogen <2.0 (<2.0) mg/dL Ur Leukocyte Esterase Negative (Negative) Urine RBC 31 H (0-5) /hpf Urine Mucus Rare H (None) /hpf Disposition Clinical Impression: Varicocele Disposition: HOME SELF-CARE Condition: Stable Instructions (If sedation given, give patient instructions): Varicocele (ED), Testicle Pain (ED) Additional Instructions: Please follow up with your primary care provider. Return to the emergency department for new or worsening symptoms. Is patient prescribed a controlled substance at d/c from ED?: No Referrals: Augustin Murphy MD [Primary Care Provider] - 1-2 days Sharan Diego MD [STAFF PHYSICIAN] - 1-2 days
--- NOTE | 2023-06-03 15:30 | US ---
EXAMINATION TYPE: US scrotum with doppler. TECHNIQUE: Grayscale and color Doppler Duplex imaging performed of the scrotum. DATE OF EXAM: 06/03/2023 COMPARISON: US 02/12/2014. CLINICAL INDICATION: Male, 23 years old with history of Lt pain; Dull left testicular pain x 2 days. EXAM MEASUREMENTS: TESTICLES: Right Testicle: 3.8 x 2.9 x 1.7 cm Left Testicle: 4.1 x 3.1 x 1.9 cm Doppler performed to assess for testicular vascularity; bilateral color flow and waveforms are seen. There is no evidence of testicular torsion. Both testicles show normal homogeneous appearance witho ut hyperemia. EPIDIDYMIS HEAD: Right Epididymis: 0.7 x 1.0 x 0.8 cm Left Epididymis: 0.8 x 1.1 x 0.8 cm Presence of hydroceles: Small right and trace on the left. Right: 1.5 x 1.5 x 0.4 cm. Left: 0.2 x 0 .5 x 0.4 cm. Presence of varicoceles: Prominent vessels seen lateral to left testicle but only measuring up to 2 mm in caliber but they do engorge slightly with Valsalva. IMPRESSION: 1. No sonographic evidence for testicular torsion or epididymoorchitis. 2. Small right and trace left hydroceles. 3. Prominent vessels lateral to the left testicle do not meet criteria for varicocele at this time. H owever, they do engorge slightly with Valsalva. Early varicoceles not excluded.
[2023-06-03 16:13] LABS: Appearance,Urine Clear (Clear); Color,Urine Yellow; Mucus,Urine Rare /hpf; PH, Urine 6.5 (5.0-8.0); Protein,Urine Negative (Negative); RBC,Urine 31 /hpf (0-5); Specific Gravity,Urine 1.015 (1.001-1.035)
[2023-06-03 16:14] LABS: Bilirubin,Urine Negative (Negative); Blood,Urine Moderate (Negative); Glucose,Urine (UA) Negative (Negative); Ketones,Urine Negative (Negative); Leukocyte Esterase,Urine Negative (Negative); Nitrite,Urine Negative (Negative); Urobilinogen,Urine <2.0 mg/dL (<2.0)
[2023-06-03 17:02] VITALS: BP 124/83; PULSE 78; RESP 18; TEMP 97.8
[2023-06-04 14:42] LABS: N. gonorrhoeae,PCR Negative (Negative)
[2023-06-04 15:12] LABS: C. trachomatis,PCR Negative (Negative)
== END 2023-06-03 16:54 | disposition home or self-care (01) ==
LOC: EC 13:38
DX: I86.1 Scrotal varices (principal); F17.200 Nicotine dependence, unspecified, uncomplicated
CPT/HCPCS: 76870; 81001; 87491; 87591; 93975; 99284